=== PATIENT | male | born 1950 | race Caucasian/White ===

== ENCOUNTER 2020-05-02 10:02 | Outpatient (CLI) | payer MEDICARE, OTHER ==
[2020-05-02 15:55] LABS: BASOPHILS # (AUTO) 0.1 10^3/uL (0.0-0.1); BASOPHILS % (AUTO) 1.4 %; EOSINOPHILS # (AUTO) 0.3 10^3/uL (0.0-0.7); EOSINOPHILS % (AUTO) 5.8 %; HCT - HEMATOCRIT 39.3 % (42.0-52.0); HGB - HEMOGLOBIN 12.9 g/dL (14.0-18.0); LYMPHOCYTES # (AUTO) 1.6 10^3/uL (1.5-3.5); LYMPHOCYTES % (AUTO) 27.5 %; MEAN CORPUSCULAR HEMOGLOBIN 30.3 pg (27.0-31.0); MEAN CORPUSCULAR HGB CONC 32.8 g/dL (32.0-36.0); MEAN CORPUSCULAR VOLUME 92.3 fL (80.0-94.0); MEAN PLATELET VOLUME 11.1 fL (7.4-11.4); MONOCYTES # (AUTO) 0.4 10^3/uL (0.0-1.0); MONOCYTES % (AUTO) 7.3 %; NEUTROPHILS # (AUTO) 3.4 10^3/uL (1.5-6.6); NEUTROPHILS % (AUTO) 57.7 %; PLT - PLATELET COUNT 294 10^3/uL (130-450); RED BLOOD COUNT 4.26 10^6/uL (4.70-6.10); RED CELL DISTRIBUTION WIDTH 13.2 % (12.0-15.0); WHITE BLOOD COUNT 5.9 x10^3/uL (4.8-10.8)
[2020-05-02 16:16] LABS: ALBUMIN 4.2 g/dL (3.2-5.5); ALBUMIN/GLOBULIN RATIO 1.4 (1.0-2.2); BILIRUBIN,TOTAL 0.9 mg/dL (0.2-1.0); CALCIUM 9.3 mg/dL (8.5-10.3); CREATININE 1.3 mg/dL (0.6-1.2); POTASSIUM 3.9 mmol/L (3.5-5.0); TOTAL PROTEIN 7.3 g/dL (6.7-8.2)
[2020-05-02 19:58] LABS: ESTIMATED AVERAGE GLUCOSE 126 mg/dL (70-100)
[2020-05-04 14:11] LABS: ANA SCREEN NEGATIVE (NEGATIVE)
== END 2020-05-02 10:03 | disposition home or self-care (01) ==
LOC: LAB.S 10:02
PROVIDERS: ATTEND Registered Nurse
DX: M25.60 Stiffness of unspecified joint, not elsewhere classified (principal); M19.90 Unspecified osteoarthritis, unspecified site; Z79.899 Other long term (current) drug therapy
CPT/HCPCS: 36415; 80053; 83036; 85025; 85651; 86038

== ENCOUNTER 2020-05-10 15:24 | Outpatient (CLI) | payer MEDICARE, OTHER ==
[2020-05-10 16:17] VITALS: BP 138/80
--- NOTE | 2020-05-10 16:17 | SLEEP CARE CONSULTATION ---
Information from patient questionnaire entered by Margy Sanchez. I have reviewed and concur with the information entered by Margy Sanchez. This document represents the service I personally performed and the decisions made by me, Jessica Murray ARNP. History of Present Illness Service Date and Time: 05/10/2020 1524 Reason for Visit: New patient, Previously diagnosed sleep apnea, sleep apnea on CPAP therapy Chief Complaint: reports: Other (Need new CPAP equipment and supplies) Date of Onset: 20 years Usual bedtime: 11 PM Time it takes to fall asleep: 1 hour Snores at night: Yes (without CPAP) Observed to quit breathing while asleep: Yes Sleeps alone due to snoring: No Number of times waking at night: 3 Reasons for waking at night: reports: Bathroom, Other (soreness from arthritis) Toss, Turn, or Twitch while sleeping: Yes Recalls having dreams: Yes Usually gets out of bed at: 9 AM Feels refreshed in the morning: Yes Morning headache: No Sleepy or fatigued during the day: Yes Ever fallen asleep while driving: Yes (Once when I was 21 years old) Takes day naps: Yes Dreams during day naps: No Prior sleep studies: Yes Year and Where: [facility] Additional HPI information: KAILA ANDERSON was diagnosed to have unknown obstructive sleep apnea- hypopnea syndrome and comes in today to establish care for CPAP therapy. He has moved into the area since November. He has been getting supplies from a [facility] in [place]. He has not updates supplies in 4-5 years and had now gone through all his built up supplies. He is using an over the nose style mask. He last replaced his mask 6-12 months. - Parasomnia Symptoms Ever been unable to move upon waking from sleep: No Walks in sleep: No Talks in sleep: No Ever acted out dreams in sleep: No Ever felt weak in the knees when startled or emotional: No Bothered by creepy, crawly, restless sensations in legs: No Problems with memory or concentration: No CPAP Compliance Data - Data Reviewed with Patient Average duration of nightly device use: 11 hours 46 minutes Compliance rate %: 99.4 Current pressure setting (cmH2O): 10-20 Heated hose settin Average residual AHI: 7.7 Central apnea: 0.2 Obstructive apnea: 1.4 Hypopnea: 6.1 Subjective Patient concerns: reports: air blowing in eyes, mask leak noise. denies: aerophagia, mask discomfort, condensation in mask/hose, nasal congestion, dry mouth, nose, throat, epistaxis, other Observed to snore while using device: No Current pressure setting perceived as: comfortable On therapy, patient: reports: sleeping better, awakening more refreshed, being more awake and alert during the day, more rested overall. 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 Patient is and lives in [place]. Have you smoked in the past 12 months: No Alcohol use: No Caffeine use: Yes Caffeine amount and frequency: 3 cups of coffee daily Family History Family Hx Sleep Apnea: Mother: Snoring, Father: Snoring Allergies and Home Medications Drug allergies reviewed: Yes (Penicillin) Home medication list reviewed: Yes Allergy and home medication list: Indomethacin Amlodipine Losartan Gabapentin Chlorthalidone Allopurinol Atomoxetine HCL Sildenafil Review of Systems Weight gain over past 5 years: 50 Weight loss over past 5 years: 5 Cardiovascular: reports: high blood pressure (controlled by meds), leg or foot swelling Respiratory: reports: shortness of breath Urinary: reports: frequency Neurological: reports: gait or balance problems Psychiatric: reports: Attention Deficit Hyperactivity, anxiety, depression Ear/Nose/Throat: reports: nasal congestion, sinus problems Endocrine: reports: sluggishness (tired), increased urination Musculoskeletal: reports: joint pain (stiffness), back pain, joint swelling, muscle pain or cramping, mobility problems Immunologic: reports: other (gout) Physical Exam Blood Pressure: 138/80 Cuff size: wrist Heart Rate: 81 O2 Saturation: 98 Height: 6 ft Weight: 304 lb Body Mass Index: 41.2 BMI Classification: Morbidly Obese Impression and Plan 1. Obstructive Sleep Apnea-Hypopnea Syndrome, unknown, with excellent treatment compliance and fair apnea control with elevated residual AHI. On CPAP therapy, the patient has better sleep quality and is more rested overall. He has been having more leaking around the mask because it is worn out. He needs new supplies and once we have a copy of his last sleep study we will fax off order for new supplies. Patient was informed that another DME can be used. I will have my dental financial coordinator inform of DME options. A DWO prescription will then be made. Patient advised to contact this office if further supply problems. I would like to follow up in 1-2 months to recheck AHI. Patient's apnea severity and rationale for treatment to reduce apnea, improve sleep quality and reduce cardiovascular and cerebrovascular events was reviewed. I also reviewed the benefit of consistent device use of CPAP for hypertension and depressi on/anxiety. * Continue auto CPAP pressure at 10-20 cmH2O * Obtain copy of sleep study * Attempt to lose weight * Call this office if any problems using CPAP * Return for follow up in 1-2 months, or sooner if concerns arise Counseling Topics: Spare mask, Weight loss health impact Visit Type: In Office Time Spent with Patient (minutes): 33 Provider Statement: I spent 100% of the Face to Face Visit with the patient with greater than 50% spent counseling the patient and coordination of care.
--- OUTSIDE RECORDS SUMMARY | 2020-05-21 20:07 | EXTERNAL MEDICAL SUMMARY RPT | Continuity of Care Document ---
:1950 Demographics Phone Unavailable Preferred Language Unknown Marital Status Unknown Protestant Affiliation Unknown Race Unknown Ethnic Group Unknown Author Organization [facility] Address [address] [place] [address] Phone Care Team Providers Name Role Phone Ramoso Unavailable Unavailable Medications date description facility [id number] Chlorthalidone 25 MG Oral Tablet [facility] Primary Care Procedures date description facility [id number] FAMILY MEDICINE PHYSICIAN [facility] Primary Care date description facility [id number] Primary Care G [facility] Primary [facility] Social History date description facility [phone]
== END 2020-05-10 15:25 | disposition home or self-care (01) ==
LOC: SC 15:24
PROVIDERS: ATTEND Nurse Practitioner Family
DX: G47.33 Obstructive sleep apnea (adult) (pediatric) (principal); E66.01 Morbid (severe) obesity due to excess calories; Z68.41 Body mass index [BMI] 40.0-44.9, adult
CPT/HCPCS: 99203; G0463; 99212

== ENCOUNTER 2020-07-31 09:27 | Outpatient (CLI) | payer MEDICARE ==
[2020-07-31 16:30] LABS: CALCIUM 9.5 mg/dL (8.5-10.3); CREATININE 1.4 mg/dL (0.6-1.2); POTASSIUM 3.5 mmol/L (3.5-5.0)
[2020-07-31 19:43] LABS: ESTIMATED AVERAGE GLUCOSE 120 mg/dL (70-100); HEMOGLOBIN A1c% 5.8 % (4.27-6.07)
== END 2020-07-31 09:28 | disposition home or self-care (01) ==
LOC: LAB.S 09:27
PROVIDERS: ATTEND Physician Assistant
DX: R73.9 Hyperglycemia, unspecified (principal)
CPT/HCPCS: 36415; 80048; 83036

== ENCOUNTER 2020-10-18 13:27 | Outpatient (CLI) | payer MEDICARE ==
--- NOTE | 2020-10-18 13:44 | SLEEP CARE CONSULTATION ---
Information from patient questionnaire entered by Alexus Glez. I have reviewed and concur with the information entered by Alexus Glez. This document represents the service I personally performed and the decisions made by , Jessica Murray ARNP. History of Present Illness Service Date and Time: 10/18/2020 1320 Previous diagnosis: Severe, Obstructive Sleep Apnea-Hypopnea Syndrome AHI: 56 (in 2017) Reason for follow up: first compliance after device update Equipment type: CPAP Equipment obtained from: [facility] (in [place]; getting supplies as needed) Mask style: Nasal Mask brand: Respironics (under the nose) Backup mask available: Yes (old mask) Last cushion change: 2 months ago Prior sleep studies: Yes Year and Where: 2017 [facility] [place], [place]; [facility] - [facility] additional information: KAILA ANDESRON was diagnosed to have severe, AHI 56, obstructive sleep apnea-hypopnea syndrome and returns via Telehealth audiovideo visit today for CPAP therapy first compliance after updating device follow-up. CPAP Compliance Data - Data Reviewed with Patient Average duration of nightly device use: 10 hr 27 min Compliance rate %: 96.7 (last 30)(compliance met 06/11/20- 07/10/20 - 100%) Current pressure setting (cmH2O): 10-20 Humidity settin Heated hose settin Average residual AHI: 4.9 Average large leak: 4 min Subjective Patient concerns: denies: aerophagia, mask discomfort, air blowing in eyes, mask leak noise, condensation in mask/hose, nasal congestion, dry mouth, nose, throat, epistaxis, other Observed to snore while using device: No Current pressure setting perceived as: comfortable On therapy, patient: reports: sleeping better, awakening more refreshed, being more awake and alert during the day, more rested overall. denies: drowsiness while driving Initial Douglas Sleepiness Scale score: 5 (in 2020) Current Douglas Sleepiness Scale score: 3 Allergies and Home Medications Home medication list reviewed: Yes (Mitigare; Allopurinol - gout) Review of Systems Review of systems same as previous: No (hip surgery coming this year) Physical Exam Vital signs obtained and entered by: Telehealth visit to reduce exposure during covid pandemic Height: 6 ft Impression and Plan 1. Obstructive Sleep Apnea-Hypopnea Syndrome, severe, with good treatment compliance and fair apnea control. On CPAP therapy, the patient has better sleep quality and is more rested overall. Patient is very satisfied with current CPAP therapy. I informed the patient that [employer] has a recall on several devices like the patients machine. Patient was encouraged to register their device online with [employer] for the recall to see if their device is affected. If their device is affected they should start a claim. Patient denies any black particles seen in machine or hoses, any unusual odors coming from d evice. Patient has not experienced any physical symptoms such as upper airway irritation, headache, skin or eye irritation, asthma, nausea/vomiting, difficulty breathing or chest pain. Patient informed that they may use an inline CPAP filter that they can obtain online to reduce chance of any particles being inhaled or ingested. We discussed thoroughly the health risks of not using the CPAP versus continuing use with the filter in place. If patient is not able to sleep due to waking up choking, gasping for air or other respiratory distress that they may decide to continue using it until it is either replaced or repaired. Patient voiced understanding and agreement with plan. Patient's apnea severity and rationale for treatment to reduce apnea, improve sleep quality and reduce cardiovascular and cerebrovascular events was reviewed. I also reviewed the benefit of consistent device use of CPAP for hypertension, depression, anxiety, and ADD. Patient is currently losing weight and has lost 15 pounds to prepare for hip surgery. He is meeting with his surgeon later this month to discuss when this will happen. Patient was encouraged to continue trying to lose weight at this will make his healing process easier and help his overall health. * Continue autoCPAP pressure at 10-20 cmH2O * Patient to register his device for recall * Notify me if snoring with mask or feeling that the pressure is too much or too little * Continue efforts to lose weight * Call this office if any problems using CPAP * Return for follow up in 1 year, or sooner if concerns arise Counseling Topics: Spare mask, Weight loss health impact Visit Type: Telehealth Video Video Type: VSee Patient Location: Home Location of Provider: Office Patient agrees and consents to this telehealth visit type: Yes Patient agrees to have their insurance billed: Yes Time Spent with Patient (minutes): 20 Provider Statement: I spent 100% of the Telehealth Video Call with the patient with greater than 50% spent counseling the patient and coordination of care.
== END 2020-10-18 13:28 | disposition home or self-care (01) ==
LOC: SC 13:27
PROVIDERS: ATTEND Nurse Practitioner Family
DX: G47.33 Obstructive sleep apnea (adult) (pediatric) (principal)

== ENCOUNTER 2021-01-17 11:46 | Outpatient (CLI) | payer MEDICARE ==
[2021-01-17 12:34] LABS: BASOPHILS # (AUTO) 0.1 10^3/uL (0.0-0.1); BASOPHILS % (AUTO) 1.1 %; EOSINOPHILS # (AUTO) 0.2 10^3/uL (0.0-0.7); EOSINOPHILS % (AUTO) 5.1 %; HCT - HEMATOCRIT 37.4 % (42.0-52.0); HGB - HEMOGLOBIN 12.9 g/dL (14.0-18.0); LYMPHOCYTES # (AUTO) 1.4 10^3/uL (1.5-3.5); LYMPHOCYTES % (AUTO) 28.9 %; MEAN CORPUSCULAR HEMOGLOBIN 31.7 pg (27.0-31.0); MEAN CORPUSCULAR HGB CONC 34.5 g/dL (32.0-36.0); MEAN CORPUSCULAR VOLUME 91.9 fL (80.0-94.0); MEAN PLATELET VOLUME 9.7 fL (7.4-11.4); MONOCYTES # (AUTO) 0.4 10^3/uL (0.0-1.0); MONOCYTES % (AUTO) 9.1 %; NEUTROPHILS # (AUTO) 2.6 10^3/uL (1.5-6.6); NEUTROPHILS % (AUTO) 55.6 %; PLT - PLATELET COUNT 287 10^3/uL (130-450); RED BLOOD COUNT 4.07 10^6/uL (4.70-6.10); WHITE BLOOD COUNT 4.7 x10^3/uL (4.8-10.8)
[2021-01-17 12:52] LABS: ALBUMIN 4.2 g/dL (3.2-5.5); ALBUMIN/GLOBULIN RATIO 1.3 (1.0-2.2); BILIRUBIN,TOTAL 0.6 mg/dL (0.2-1.0); TOTAL PROTEIN 7.4 g/dL (6.7-8.2)
[2021-01-17 12:53] LABS: CALCIUM 9.7 mg/dL (8.5-10.3); POTASSIUM 3.7 mmol/L (3.5-5.0)
[2021-01-17 13:29] LABS: ESTIMATED AVERAGE GLUCOSE 117 mg/dL (70-100); HEMOGLOBIN A1c% 5.7 % (4.27-6.07)
== END 2021-01-17 11:47 | disposition home or self-care (01) ==
LOC: RT 11:46
PROVIDERS: ATTEND Orthopaedic Surgery
DX: Z01.818 Encounter for other preprocedural examination (principal); M16.12 Unilateral primary osteoarthritis, left hip
CPT/HCPCS: 36415; 80053; 82985; 83036; 85025; 93005

== ENCOUNTER 2021-09-12 10:24 | Outpatient (CLI) | payer MEDICARE | END 2021-09-12 10:25 | disposition home or self-care (01) | LOC: NS 10:24 | PROVIDERS: ATTEND Physician Assistant | DX: Z71.3 Dietary counseling and surveillance (principal); E66.01 Morbid (severe) obesity due to excess calories; Z68.41 Body mass index [BMI] 40.0-44.9, adult | CPT/HCPCS: 97803 ==

== ENCOUNTER 2021-10-16 13:08 | Outpatient (CLI) | payer MEDICARE | END 2021-10-16 13:09 | disposition home or self-care (01) | LOC: NS 13:08 | PROVIDERS: ATTEND Physician Assistant | DX: Z71.3 Dietary counseling and surveillance (principal); E66.01 Morbid (severe) obesity due to excess calories; Z68.41 Body mass index [BMI] 40.0-44.9, adult | CPT/HCPCS: 97803 ==

== ENCOUNTER 2022-02-07 09:57 | Outpatient (CLI) | payer MEDICARE | END 2022-02-07 09:58 | disposition short-term general hospital (02) | LOC: EMS 09:57 | DX: R42 Dizziness and giddiness (principal); R53.1 Weakness; R39.89 Other symptoms and signs involving the genitourinary system | CPT/HCPCS: A0425; A0429 ==

== ENCOUNTER 2022-11-02 15:11 | Outpatient (CLI) | payer MEDICARE | END 2022-11-02 15:12 | disposition EMS.NT | LOC: EMS 15:11 | DX: R53.1 Weakness (principal); R25.2 Cramp and spasm ==

== ENCOUNTER 2022-11-02 19:46 | Outpatient (CLI) | payer MEDICARE | END 2022-11-02 19:47 | disposition EMS.NT | LOC: EMS 19:46 | DX: R53.1 Weakness (principal) ==